=== PATIENT | male | born 1975 | race Two or more races ===

== ENCOUNTER → 2024-07-01 | Outpatient (CLI) | payer OTHER, MEDICAID ==
[2024-07-01 16:08] LABS: ALBUMIN 4.1 G/DL (3.2-5.2); BILIRUBIN,DIRECT 0.2 MG/DL (<0.4); BILIRUBIN,TOTAL 0.4 MG/DL (0.3-1.2); TOTAL PROTEIN 7.9 G/DL (5.7-8.2)
[2024-07-03 16:33] LABS: HEPATITIS A IgG TOTAL REACTIVE (NON-REACTIVE); HEPATITIS B CORE ANTIBODY IGG REACTIVE (NON-REACTIVE)
[2024-07-04 23:07] LABS: HEPATITIS C VIRUS GENOTYPE 1a (.)
== END ==
LOC: M PLALAB 12:11
PROVIDERS: ATTEND Internal Medicine Infectious Disease
DX: B18.2 Chronic viral hepatitis C (principal)

== ENCOUNTER → 2025-06-10 | Outpatient (REF) | payer OTHER, MEDICAID ==
[2025-06-10 15:07] LABS: BASO # 0.1 10^3/uL (0.0-0.2); BASO % 0.7 % (0.0-1.0); EOS # 0.1 10^3/uL (0.0-0.5); EOS % 1.4 % (0.0-3.0); LYMPH # 2.3 10^3/uL (1.5-5.0); LYMPH % 25.5 % (24.0-44.0); MONO # 0.7 10^3/uL (0.0-0.8); MONO % 8.1 % (2.0-8.0); NEUTROPHILS # 5.9 10^3/uL (1.5-8.5); NEUTROPHILS % 64.1 % (36.0-66.0); PLATELET COUNT, AUTOMATED 169 10^3/uL (150-450)
[2025-06-10 15:12] LABS: ALT/SGPT 11 U/L (7.0-40); AST/SGOT 16 U/L (<34); PSA SCREENING 0.82 NG/ML (< 4.00)
[2025-06-10 15:59] LABS: HEPATITIS C VIRUS ABY INDEX > 11.00 INDEX (<0.8)
[2025-06-12 14:27] LABS: HCV RNA QUANTITATION <15 NOT DETECTED IU/mL (NOT DETECTED); HCV RNA log10 <1.18 NOT DETECTED Log IU/mL (NOT DETECTED)
== END ==
LOC: M LAB REF 14:40
PROVIDERS: ATTEND Pediatrics
DX: B18.2 Chronic viral hepatitis C (principal); R00.1 Bradycardia, unspecified
CPT/HCPCS: 80076; 82105; 84443; 85025; 86803; 87522; G0103